=== PATIENT | female | born 1950 | race Caucasian/White ===

== ENCOUNTER 2020-02-27 22:57 | Emergency (ER) | payer OTHER ==
[2020-02-27] MEDS ORDERED: DiphenhydrAMINE HCL 50 MG/ML VIAL ONE (23:21)
[2020-02-27] MEDS ORDERED: METHYLPREDNISOLONE SOD SUCC 125MG/2ML VIAL ONE (23:22)
[2020-02-27] MEDS ORDERED: FAMOTIDINE/PF 20 MG/2 ML VIAL IV ONE (23:22)
[2020-02-27] MEDS ORDERED: HYDRALAZINE HCL 20 MG/ML VIAL ONE (23:33)
[2020-02-28 00:12] LABS: BASOPHILS % (AUTO) 0.5 % (0.0-5.0); EOSINOPHILS % (AUTO) 2.5 % (0.0-8.0); HEMATOCRIT 39.4 % (36-48); LYMPHOCYTES % (AUTO) 48.8 % (21.0-51.0); MEAN CORPUSCULAR HEMOGLOBIN 33.2 pg (27.0-33.0); MEAN CORPUSCULAR VOLUME 94.7 fL (79-99); MONOCYTES % (AUTO) 6.4 % (3.0-13.0); NEUTROPHILS % (AUTO) 41.6 % (40.0-77.0); PLATELET COUNT (AUTO) 202 K/uL (130-400); RED BLOOD CELL COUNT(AUTO) 4.16 MIL/uL (4.00-5.50); RED CELL DISTRIBUTION WIDTH 12.5 % (11.0-15.5); WHITE BLOOD COUNT (AUTO) 6.1 K/uL (4.8-10.8)
[2020-02-28] MEDS ORDERED: EPINEPHRINE 1 MG/ML AMPULE ONE (00:43)
[2020-02-28 01:50] LABS: CREATININE 0.9 mg/dL (0.5-1.5)
[2020-02-28 01:56] LABS: ALBUMIN 4.4 g/dL (3.5-5.0); BILIRUBIN,TOTAL 0.3 mg/dL (0.2-1.0); TOTAL PROTEIN, SERUM 7.1 g/dL (6.0-8.3)
[2020-02-28] MEDS ORDERED: POTASSIUM BICARB/CIT AC 25 MEQ TABLET.EFF ONE (02:31)
== END 2020-02-28 03:01 | disposition home or self-care (01) ==
LOC: EDH 22:57
DX: T78.2XXA Anaphylactic shock, unspecified, initial encounter (principal); T78.49XA Other allergy, initial encounter; I10 Essential (primary) hypertension; Z88.0 Allergy status to penicillin; Z88.2 Allergy status to sulfonamides; Z88.8 Allergy status to other drugs, medicaments and biological substances; Z90.710 Acquired absence of both cervix and uterus; X58.XXXA Exposure to other specified factors, initial encounter
CPT/HCPCS: 36415; 80053; 85025; 96372; 96374; 96375; 99284; J0171; J0360; J1200; J2930; J3490

== ENCOUNTER → 2024-05-10 | Outpatient (CLI) | payer OTHER | END | disposition home or self-care (01) | LOC: RAH 09:11 | PROVIDERS: ATTEND Family Medicine | DX: R55 Syncope and collapse (principal) | CPT/HCPCS: 93880 ==

== ENCOUNTER → 2025-02-18 | Outpatient (CLI) | payer OTHER ==
[~2025-02-18] MED LIST: GADOTERATE MEGLUMINE 10 MMOL/20 ML VIAL IV ONE
--- NOTE | 2025-02-18 15:07 | HMCIMG ---
MR BRAIN WWO CON REASON: R42 Dizziness and giddiness TECHNIQUE: Routine cerebral imaging protocol was performed. Images were also obtained to before and after IV contrast STUDIES FOR COMPARISON: None. FINDINGS: There are diffusely generous ventricles and sulci. Findings are consistent with diffuse global atrophy. There are also focal areas of increased signal intensity within the deep central white matter consistent with small vessel disease. There are no focal mass lesions. There are no focal areas of abnormal contrast enhancement. There are no abnormal fluid collections. There is no evidence of intracranial hemorrhage. Diffusion-weighted images are negative for acute ischemic event. Posterior fossa and brainstem structures appear normal as well. Calvarium appears unremarkable. Extracranial soft tissues appear normal as well. IMPRESSION: 1. Diffusely generous ventricles and sulci consistent with a component of global atrophy. 2. No acute finding, no evidence of intracranial hemorrhage or acute stroke. 3. No focal mass lesions identified, no
== END | disposition home or self-care (01) ==
LOC: RAH 13:48
PROVIDERS: ATTEND Family Medicine
DX: G93.89 Other specified disorders of brain (principal); H53.8 Other visual disturbances; R42 Dizziness and giddiness
CPT/HCPCS: 70553; A9575